=== PATIENT | female | born 1990 | race Caucasian/White ===

== ENCOUNTER 2023-08-04 09:27 | Emergency (ER) | payer BC, SELFPAY ==
[2023-08-04] MEDS ORDERED: Lidocaine 1% (PF) 30 ML VIAL ONE (11:33)
== END 2023-08-04 12:09 | disposition home or self-care (01) ==
LOC: ERS 09:27
DX: N76.4 Abscess of vulva (principal); F17.210 Nicotine dependence, cigarettes, uncomplicated
CPT/HCPCS: 56405; J2001